=== PATIENT | male | born 1990 | race Caucasian/White ===

== ENCOUNTER 2021-08-11 10:50 | Emergency (ER) | payer MEDICAID ==
--- NOTE | 2021-08-11 11:45 | EDM.PDOC ---
ED HPI GENERAL MEDICAL PROBLEM - General Chief Complaint: Flank Pain Stated Complaint: KIDNEY PAIN Time Seen by Provider: 08/11/21 11:30 Source of Information: Reports: Patient History Limitations: Reports: No Limitations - History of Present Illness INITIAL COMMENTS - FREE TEXT/NARRATIVE: Pt has chronic kidney pain. He has diagnosis of loin pain hematuria syndrome. He has been in to the [place] ER over 70 times in the last year. He has been seen at [facility] for this and has follow up appt in October for that. He was given Percocet for his pain by Edgar So who pt states is his primary. He should have enough pain meds to get through until 08/12 and he took his last one this morning at 3 am. He does have bloody urine. Was given steroids in the ER in [place] 2 days ago. Location: Reports: Abdomen Flank Pain Score (Numeric/FACES): 96 - Related Data Allergies Allergy/AdvReac Type Severity Reaction Status Date / Time amoxicillin [Amoxicillin] Allergy Rash Verified 08/11/21 14:13 bee venom protein (honey bee) Allergy Cannot Verified 08/11/21 14:13 Remember butorphanol [From Stadol] Allergy Hallucinati Verified 08/11/21 14:13 ons haloperidol [From Haldol] Allergy Hallucinati Verified 08/11/21 14:13 ons ketorolac tromethamine Allergy Rash Verified 08/11/21 14:13 [From Toradol] metoclopramide [From Reglan] Allergy Agitation Verified 08/11/21 14:13 promethazine HCl Allergy Hallucinati Verified 08/11/21 14:13 [From Phenergan] ons tramadol HCl [From Ultram] Allergy Rash Verified 08/11/21 14:13 Home Meds: Home Meds Tamsulosin HCl [Flomax] 0.4 mg PO DAILY 05/17/20 [History] Ondansetron [Zofran] 8 mg PO TID PRN 06/08/20 [History] Acetaminophen [Tylenol] 650 mg PO Q4HR PRN 12/15/20 [History] metFORMIN HCl [Metformin ER Gastric] 500 mg PO BID 02/15/21 [History] Losartan Potassium 25 mg PO BEDTIME 08/11/21 [History] oxyCODONE HCl/Acetaminophen [Oxycodone-Acetaminophen 5-325] 1 tab PO Q6H PRN 08/11/21 [History] Past Medical History - Past Health History Medical/Surgical History: Denies Medical/Surgical History HEENT History: Reports: None Cardiovascular History: Reports: High Cholesterol, Hypertension Respiratory History: Reports: None Gastrointestinal History: Reports: Cholelithiasis, Gastritis, GERD Other Gastrointestinal History: gallbladder pain Genitourinary History: Reports: Renal Calculus, Other (See Below) Other Genitourinary History: Vascular kidney disease. Loin pain hematuria syndrome Musculoskeletal History: Reports: None Neurological History: Reports: None Psychiatric History: Reports: Addiction Other Psychiatric History: Drug seeking behavior. 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 Hematologic History: Reports: None Immunologic History: Reports: None Oncologic (Cancer) History: Reports: None Dermatologic History: Reports: None - Infectious Disease History Infectious Disease History: Reports: Chicken Pox, Novel Coronavirus - Past Surgical History Head Surgeries/Procedures: Reports: None HEENT Surgical History: Reports: None Cardiovascular Surgical History: Reports: None GI Surgical History: Reports: Appendectomy, Cholecystectomy Male Surgical History: Reports: Circumcision Other Male Surgeries/Procedures: Has had kidney biopsy Musculoskeletal Surgical History: Reports: Other (See Below) Other Musculoskeletal Surgeries/Procedures:: left arm Social & Family History - Family History Family Medical History: No Pertinent Family History - Tobacco Use Tobacco Use Status *Q: Current Every Day Tobacco User Years of Tobacco use: 15 Packs/Tins Daily: 1 - Caffeine Use Caffeine Use: Reports: Soda Caffeine Use Comment: Occasional - Living Situation & Occupation Living situation: Reports: Single, Alone Occupation: Employed ED ROS GENERAL - Review of Systems Review Of Systems: See Below Constitutional: Denies: Fever, Chills Respiratory: Reports: No Symptoms Cardiovascular: Reports: No Symptoms GI/Abdominal: Reports: Abdominal Pain : Reports: Flank Pain, Hematuria Skin: Reports: No Symptoms ED EXAM, RENAL/ - Physical Exam Exam: See Below Exam Limited By: No Limitations General Appearance: Alert, WD/WN, Moderate Distress Respiratory/Chest: No Respiratory Distress, Lungs Clear, Normal Breath Sounds Cardiovascular: Normal Peripheral Pulses, Regular Rate, Rhythm, No Edema GI/Abdominal: Normal Bowel Sounds, Soft, Tender (throughout all quadrants.) Back Exam: Normal Inspection Extremities: Normal Inspection Neurological: Alert, Oriented Skin Exam: Warm, Dry Course - Vital Signs Last Recorded V/S: Last Vital Signs Temp 96.9 F 08/11/21 10:57 Pulse 72 08/11/21 12:02 Resp 12 08/11/21 12:02 BP 119/85 08/11/21 12:02 Pulse Ox 97 08/11/21 12:02 - Orders/Labs/Meds Labs: Laboratory Tests 08/11/21 08/11/21 08/11/21 Range/Units 11:04 11:19 11:19 WBC 12.8 H (4.0-11.0) 10^3/uL RBC 5.22 (4.50-6.00) x10^6/uL Hgb 15.2 (14.0-18.0) g/dL Hct 45.0 (42.0-52.0) % MCV 86.2 (83.0-97.0) fL MCH 29.1 (27.0-32.0) pg MCHC 33.8 (32.0-36.0) g/dL RDW Coeff of Javon 12.4 (11.0-15.0) % Plt Count 299 (150-400) 10^3/uL Immature Gran % (Auto) 0.2 (0.0-4.9) % Neut % (Auto) 78.2 H (41-71) % Lymph % (Auto) 15.5 L (24-44) % [place] % (Auto) 5.2 (0-10) % Eos % (Auto) 0.5 (0-6) % Baso % (Auto) 0.4 (0-1) % Neut # (Auto) 10.02 H (1.80-8.00) x10^3/uL Lymph # (Auto) 1.99 (0.60-5.00) 10^3/uL [place] # (Auto) 0.67 (0.00-1.50) 10^3/uL Eos # (Auto) 0.06 (0.00-1.50) 10^3/uL Baso # (Auto) 0.05 (0.00-0.50) 10^3/uL Immature Gran # (Auto) 0.03 (0.00-0.49) 10^3/uL C-Reactive Protein 0.5 (0.2-0.8) mg/dL Urine Color Red (YELLOW) Urine Appearance Slightly cloudy (CLEAR) Urine pH 5.5 (4.5-8.0) Ur Specific [place] >= 1.030 H (1.003-1.020) Urine Protein Trace H (NEGATIVE) mg/dL Urine Glucose (UA) Negative (NEGATIVE) mg/dL Urine Ketones Negative (NEGATIVE) mg/dL Urine Occult Blood Large H (NEGATIVE) Urine Nitrite Negative (NEGATIVE) Urine Bilirubin Negative (NEGATIVE) Urine Urobilinogen 0.2 (0.2-1.0) EU/dL Ur Leukocyte Esterase Negative (NEGATIVE) Urine RBC 75-100 H (0-5) /HPF Urine WBC Not seen (0-5) /HPF Meds: Medications Discontinued Medications Generic Name Dose Route Start Last Admin Trade Name Freq PRN Reason Stop Dose Admin Hydromorphone HCl 2 mg 08/11/21 11:37 08/11/21 11:48 Hydromorphone 1 Mg/Ml Syringe IM 08/11/21 11:38 2 mg ONETIME ONE Administration Ondansetron HCl 4 mg 08/11/21 11:36 08/11/21 11:48 Ondansetron 4 Mg/2 Ml Sdv IVPUSH 4 mg Q6H PRN Administration Nausea - Re-Assessments/Exams Free Text/Narrative Re-Assessment/Exam: 08/11/21 1230 Discussed with pt that he has been in the ER over 70 times in the last year in . They state that he has a pain contract with them and he disputes that. He should have enough pain meds from Edgar So to get him thro ugh the 30th and he states that he took the last one early this AM. I told him that I will not do chronic pain meds in the ER that he would have to discuss that with his PCP. Departure - Departure Time of Disposition: 12:54 Disposition: Home, Self-Care 01 Condition: Good Clinical Impression: Loin pain hematuria syndrome - Discharge Information *PRESCRIPTION DRUG MONITORING PROGRAM REVIEWED*: Not Applicable *COPY OF PRESCRIPTION DRUG MONITORING REPORT IN PATIENT FÉLIX: Not Applicable Referrals: PCP,None [Primary Care Provider] - Forms: ED Department Discharge Additional Instructions: push fluids Pain meds will not be prescribed chronically through the ER check with your primary care provider for further pain management. Sepsis Event Note (ED) - Evaluation Sepsis Screening Result: No Definite Risk - Problem List & Annotations (1) Abdominal pain SNOMED Code(s): 93622593 Code(s): R10.9 - UNSPECIFIED ABDOMINAL PAIN Status: Acute Priority: High Qualifiers: Abdominal location: right upper quadrant Qualified Code(s): R10.11 - Right upper quadrant pain (2) Drug-seeking behavior SNOMED Code(s): 427611461 Code(s): Z76.5 - MALINGERER [CONSCIOUS SIMULATION] Status: Acute (3) Gross hematuria SNOMED Code(s): 495155912 Code(s): R31.0 - GROSS HEMATURIA Status: Acute - Problem List Review Problem List Initiated/Reviewed/Updated: Yes
[2021-08-11] MEDS: HYDROmorphone 1 MG/ML Syringe IM ONE (11:48)
[2021-08-11] MEDS: Ondansetron 4 MG/2 ML SDV IVPUSH PRN (11:48)
[2021-08-11 12:04] VITALS: BP 119/85; PULSE 72
== END 2021-08-11 13:00 | disposition home or self-care (01) ==
LOC: CC.ED 10:50
DX: M54.50 Low back pain, unspecified (principal); R31.9 Hematuria, unspecified; E78.00 Pure hypercholesterolemia, unspecified; I10 Essential (primary) hypertension; K21.9 Gastro-esophageal reflux disease without esophagitis; E11.9 Type 2 diabetes mellitus without complications; E66.9 Obesity, unspecified; Z68.41 Body mass index [BMI] 40.0-44.9, adult; Z88.0 Allergy status to penicillin; Z91.030 Bee allergy status; Z88.5 Allergy status to narcotic agent; Z88.8 Allergy status to other drugs, medicaments and biological substances; Z79.899 Other long term (current) drug therapy; Z72.0 Tobacco use
CPT/HCPCS: 36415; 81001; 85025; 86140; 96372; 96374; 99284-25; J1170; J2405

== ENCOUNTER 2021-08-11 14:09 | Observation (INO) | payer MEDICAID ==
[2021-08-11] MEDS ORDERED: Acetaminophen 325 MG Tab PO PRN (14:30)
[2021-08-11] MEDS ORDERED: Docusate Sodium 100 MG Cap PO PRN (14:30)
[2021-08-11] MEDS ORDERED: methylPREDNISolone Sodium Succinate 125 MG/2 ML SDV IVPUSH ONE (15:15)
[2021-08-11] MEDS: Sodium Chloride 0.9% 1,000 ML IV SCH ×2 (15:30→22:24)
[2021-08-11] MEDS: methylPREDNISolone Sodium Succinate 125 MG/2 ML SDV IVPUSH SCH (15:30)
[2021-08-11] MEDS: HYDROmorphone 1 MG/ML Syringe IVPUSH PRN ×2 (15:36→19:57)
[2021-08-11] MEDS: Acetaminophen/oxyCODONE 325-5 MG Tab PO PRN ×2 (18:25→22:35)
[2021-08-11] MEDS: Ondansetron 4 MG Tab.DIS PO PRN (22:36)
[2021-08-12] MEDS: HYDROmorphone 1 MG/ML Syringe IVPUSH PRN ×3 (00:02→08:30)
[2021-08-12] MEDS: methylPREDNISolone Sodium Succinate 125 MG/2 ML SDV IVPUSH SCH (03:58)
[2021-08-12] MEDS: Acetaminophen/oxyCODONE 325-5 MG Tab PO PRN (04:01)
[2021-08-12] MEDS: Sodium Chloride 0.9% 1,000 ML IV SCH (06:15)
[2021-08-12 08:10] LABS: SODIUM,NA 142 mEq/L (136-145)
[2021-08-12 08:19] VITALS: BP 125/61; PULSE 59
[2021-08-12] MEDS: Ondansetron 4 MG Tab.DIS PO PRN (08:31)
--- NOTE | 2021-08-12 09:18 | PCM.DCSUM1 ---
Discharge Summary - Hospital Course Free Text/Narrative:: Ricki is a 31 year old male who was admitted to the hospital with loin pain hematuria syndrome for pain control. Throughout the night, patient had multiple complaints that his pain was not adequately controlled. Was frequently swearing at nursing staff. He was using 5 mg Percocet every 4 hours as well as Dilaudid 1 mg every 4 hours as needed. He reported this did not manage the pain. He reports that in the past he has been having to use 10 mg oxycodone every 6 hours in order to achieve a tolerable level of pain. He continued to have gross hematuria throughout stay. He has apparently had extensive workup with urology in the past to get to this diagnosis of loin pain hematuria syndrome. Has been following with [facility] and is candidate for a renal auto transplant in the future, once he can get weight under 300 lbs. This is all per his report, as we do not yet have his medical records available for review. These have apparently been requested. Long discussion had with patient regarding his numerous ED visits as well as pain medications from multiple providers. Discussed that he needs to follow up with PCP, whom he wishes to be Edgar So, and discuss pain management plan for the future until he is able to get back in with Dr. Marroquin (urologist at [facility]) for his upcoming renal auto transplant. He verbalized that in the past his pain was managed with Percocet 2 tab every 6 hours. He is scheduled to see Dr. Merrill on August 20. Encouraged him to continue with diet and exercise to reach goal weight recommended. Patient did not wish to stay in the hospital, as he reports the Dilaudid is not helping his pain. I will discharge him home with Percocet 1-2 tablets every 6 hours as needed for pain. Does report that in the past he was on amitriptyline as well and that helped his pain as well. Will restart that. Discussed importance of having a primary care provider to manage issues, rather than jumping from provider to provider and going to the ED for his chronic issue. Discussed that he will need to get in pain contract with PCP in future once plan for chronic pain management is established. He discharged home in stable condition. - Discharge Data Discharge Date: 08/12/21 Discharge Disposition: Home, Self-Care 01 Condition: Good - Referral to Home Health Primary Care Physician: Christian So PA-C - Discharge Diagnosis/Problem(s) (1) Loin pain hematuria syndrome SNOMED Code(s): 09191057 ICD Code: M54.5 - LOW BACK PAIN * DO NOT USE *; R31.9 - HEMATURIA, UNSPECIFIED Status: Acute - Patient Instructions Diet: Usual Diet as Tolerated, Weight Loss Diet Activity: As Tolerated Notify Provider of: Fever, Increased Pain, Nausea and/or Vomiting - Discharge Plan *PRESCRIPTION DRUG MONITORING PROGRAM REVIEWED*: Yes *COPY OF PRESCRIPTION DRUG MONITORING REPORT IN PATIENT FÉLIX: Yes Prescriptions/Med Rec: Amitriptyline [Elavil] 25 mg PO BEDTIME #30 tab Tamsulosin HCl [Flomax] 0.4 mg PO DAILY #30 cap oxyCODONE HCl/Acetaminophen [Oxycodone-Acetaminophen 5-325] 2 tab PO Q6H PRN 8 Days #64 PRN Reason: Pain Home Medications: Home Meds Ondansetron [Zofran] 8 mg PO TID PRN 06/08/20 [History] Acetaminophen [Tylenol] 650 mg PO Q4HR PRN 12/15/20 [History] metFORMIN HCl [Metformin ER Gastric] 500 mg PO BID 02/15/21 [History] Losartan Potassium 25 mg PO BEDTIME 08/11/21 [History] Amitriptyline [Elavil] 25 mg PO BEDTIME #30 tab 08/12/21 [Rx] Docusate Sodium [Colace] 100 mg PO BID PRN cap 08/12/21 [Rx] Tamsulosin HCl [Flomax] 0.4 mg PO DAILY #30 cap 08/12/21 [Rx] oxyCODONE HCl/Acetaminophen [Oxycodone-Acetaminophen 5-325] 2 tab PO Q6H PRN 8 Days #64 08/12/21 [Rx] Patient Handouts: Hematuria, Adult Referrals: Christian So PA-C [Primary Care Provider] - - Discharge Summary/Plan Comment DC Time >30 min.: Yes Total # of Minutes for Discharge Time: 60 - General Info Date of Service: 08/12/21 Admission Dx/Problem (Free Text: Loin Pain Hematuria Syndrome Functional Status: Reports: Ambulating, Urinating. Denies: Pain Controlled, Tolerating Diet, New Symptoms - Review of Systems General: Denies: Fever, Weakness, Fatigue, Malaise, Chills Pulmonary: Reports: No Symptoms Cardiovascular: Reports: No Symptoms Gastrointestinal: Reports: Abdominal Pain, Decreased Appetite, Nausea. Denies: Diarrhea, Vomiting Genitourinary: Reports: Pain, Hematuria. Denies: Dysuria Musculoskeletal: Reports: Back Pain Skin: Reports: No Symptoms Neurological: Reports: No Symptoms Psychiatric: Reports: No Symptoms - Patient Data Vitals - Most Recent: Last Vital Signs Temp 96.6 F L 08/12/21 07:57 Pulse 59 L 08/12/21 07:57 Resp 20 08/12/21 07:57 BP 125/61 08/12/21 07:57 Pulse Ox 98 08/12/21 07:57 Weight - Most Recent: 313 lb 11.2 oz I&O - Last 24 hours: Intake & Output 08/11/21 08/12/21 08/12/21 22:59 06:59 14:59 Intake Total 863 981 Balance 863 981 Lab Results - Last 24 hrs: Laboratory Results - last 24 hr 08/12/21 Range/Units 07:49 WBC 15.3 H (4.0-11.0) 10^3/uL RBC 5.20 (4.50-6.00) x10^6/uL Hgb 15.2 (14.0-18.0) g/dL Hct 44.2 (42.0-52.0) % MCV 85.0 (83.0-97.0) fL MCH 29.2 (27.0-32.0) pg MCHC 34.4 (32.0-36.0) g/dL RDW Coeff of Javon 12.0 (11.0-15.0) % Plt Count 322 (150-400) 10^3/uL Add Manual Diff Yes Neutrophils % (Manual) 86 H (35-85) % Band Neutrophils % 2 (0-5) % Lymphocytes % (Manual) 9 L (21-55) % Monocytes % (Manual) 3 (2-12) % Med Orders - Current: Current Medications Acetaminophen (Acetaminophen 325 Mg Tab) 650 mg PO Q4H PRN PRN Reason: Pain (Mild 1-3)/fever Last Admin: 08/11/21 16:38 Dose: 650 mg Documented by: Docusate Sodium (Docusate Sodium 100 Mg Cap) 100 mg PO BID PRN PRN Reason: Constipation Hydromorphone HCl (Hydromorphone 1 Mg/Ml Syringe) 1 mg IVPUSH Q4H PRN PRN Reason: Pain (severe 7-10) Last Admin: 08/12/21 08:30 Dose: 1 mg Documented by: Sodium Chloride (Normal Saline) 1,000 mls @ 125 mls/hr IV ASDIRECTED [facility] Last Admin: 08/12/21 06:15 Dose: 125 mls/hr Documented by: Methylprednisolone Sodium Succinate (Methylprednisolone Sodium Succinate 125 Mg/2 Ml Sdv) 62.5 mg IVPUSH Q12H [facility] Last Admin: 08/12/21 03:58 Dose: 62.5 mg Documented by: Ondansetron HCl (Ondansetron 4 Mg Tab.Dis) 4 mg PO Q6H PRN PRN Reason: Nausea/Vomiting Last Admin: 08/12/21 08:31 Dose: 4 mg Documented by: Oxycodone/Acetaminophen (Acetaminophen/Oxycodone 325-5 Mg Tab) 1 tab PO Q4H PRN PRN Reason: Pain (moderate 4-6) Last Admin: 08/12/21 04:01 Dose: 1 tab Documented by: Discontinued Medications Methylprednisolone Sodium Succinate (Methylprednisolone Sodium Succinate 125 Mg/2 Ml Sdv) 62.5 mg IVPUSH ONETIME ONE Stop: 08/11/21 15:16 - Exam General: Reports: Alert, Oriented, Moderate Distress Neck: Reports: Supple Lungs: Reports: Clear to Auscultation, Normal Respiratory Effort Cardiovascular: Reports: Regular Rate, Regular Rhythm GI/Abdominal Exam: Normal Bowel Sounds, Soft, Tender Back Exam: Reports: Full Range of Motion, CVA Tenderness (L), CVA Tenderness (R) Extremities: Normal Inspection, Normal Range of Motion, Non-Tender, No Pedal Edema, Normal Capillary Refill Skin: Reports: Warm, Dry, Intact Neurological: Reports: No New Focal Deficit Psy/Mental Status: Reports: Other (tearful)
[2021-08-12 09:54] LABS: CHLORIDE,CL 107 mEq/L (98-106)
== END 2021-08-12 10:30 | disposition home or self-care (01) ==
LOC: CC.MS 14:09 → UNDOADMOB 14:09 → CC.MS 14:30 → UNDODISOB 08-12 10:30
PROVIDERS: ADMIT Physician Assistant Medical; ATTEND Family Medicine
DX: R31.9 Hematuria, unspecified (principal); M54.9 Dorsalgia, unspecified; Z88.1 Allergy status to other antibiotic agents; Z88.8 Allergy status to other drugs, medicaments and biological substances; Z88.5 Allergy status to narcotic agent; Z79.899 Other long term (current) drug therapy; Z90.49 Acquired absence of other specified parts of digestive tract; Z98.890 Other specified postprocedural states
CPT/HCPCS: 36415; 80048; 85025; 86140; 96374; 96375; 96376; A9270-GY; G0378; J1170; J2930; J7030

== ENCOUNTER 2021-08-26 09:23 | Emergency (ER) | payer MEDICAID ==
[2021-08-26] MEDS ORDERED: Sodium Chloride 0.9% 10 ML Syringe FLUSH PRN (09:45)
[2021-08-26] MEDS ORDERED: Sodium Chloride 0.9% 1,000 ML IV ONE (09:47)
[2021-08-26] MEDS ORDERED: HYDROmorphone 1 MG/ML Syringe IVPUSH STA (09:47)
[2021-08-26 10:16] LABS: CHLORIDE,CL 106 mEq/L (98-106); SODIUM,NA 141 mEq/L (136-145)
[2021-08-26 10:23] LABS: AMPHETAMINES,URINE NEGATIVE (NEGATIVE); BARBITURATES,URINE NEGATIVE (NEGATIVE); BENZODIAZEPINE,URINE NEGATIVE (NEGATIVE); MDMA (ECSTASY), URINE NEGATIVE (NEGATIVE); METHADONE,URINE NEGATIVE (NEGATIVE); METHAMPHETAMINES,URINE NEGATIVE (NEGATIVE); OPIATES,URINE NEGATIVE (NEGATIVE); OXYCODONE,URINE POSITIVE (NEGATIVE); PHENCYCLIDINE,URINE NEGATIVE (NEGATIVE); TCA,URINE NEGATIVE (NEGATIVE)
[2021-08-26] MEDS ORDERED: HYDROmorphone 1 MG/ML Syringe IVPUSH ONE (10:44)
[2021-08-26 11:53] VITALS: BP 141/69; PULSE 78
== END 2021-08-26 11:53 | disposition home or self-care (01) ==
LOC: CC.ED 09:23
DX: M54.50 Low back pain, unspecified (principal); R31.0 Gross hematuria; E78.00 Pure hypercholesterolemia, unspecified; I10 Essential (primary) hypertension; Z88.0 Allergy status to penicillin; Z91.030 Bee allergy status; Z88.5 Allergy status to narcotic agent; Z88.6 Allergy status to analgesic agent; Z79.84 Long term (current) use of oral hypoglycemic drugs; Z79.899 Other long term (current) drug therapy
CPT/HCPCS: 36415; 80053; 80305; 81001; 85025; 86140; 96374; 96376; 99284; J1170; J7030

== ENCOUNTER 2021-08-30 21:35 | Emergency (ER) | payer MEDICAID ==
[2021-08-30] MEDS ORDERED: Sodium Chloride 0.9% 1,000 ML IV ONE (22:09)
[2021-08-30 22:43] LABS: AMPHETAMINES,URINE NEGATIVE (NEGATIVE); BARBITURATES,URINE NEGATIVE (NEGATIVE); BENZODIAZEPINE,URINE NEGATIVE (NEGATIVE); MDMA (ECSTASY), URINE NEGATIVE (NEGATIVE); METHADONE,URINE NEGATIVE (NEGATIVE); METHAMPHETAMINES,URINE NEGATIVE (NEGATIVE); OPIATES,URINE NEGATIVE (NEGATIVE); OXYCODONE,URINE POSITIVE (NEGATIVE); PHENCYCLIDINE,URINE NEGATIVE (NEGATIVE); TCA,URINE NEGATIVE (NEGATIVE)
[2021-08-30 23:02] VITALS: BP 149/96; PULSE 80
== END 2021-08-30 23:00 | disposition left against medical advice (07) ==
LOC: CC.ED 21:35
DX: G89.4 Chronic pain syndrome (principal); M54.50 Low back pain, unspecified; R31.9 Hematuria, unspecified; I10 Essential (primary) hypertension; E11.9 Type 2 diabetes mellitus without complications; E66.9 Obesity, unspecified; Z68.41 Body mass index [BMI] 40.0-44.9, adult; Z76.5 Malingerer [conscious simulation]; Z72.0 Tobacco use; Z88.0 Allergy status to penicillin; Z91.030 Bee allergy status; Z88.8 Allergy status to other drugs, medicaments and biological substances; Z88.5 Allergy status to narcotic agent; Z79.84 Long term (current) use of oral hypoglycemic drugs; Z79.899 Other long term (current) drug therapy
CPT/HCPCS: 80305-QW; 81001; 99284; J7030

== ENCOUNTER 2021-10-19 10:58 | Emergency (ER) | payer MEDICAID ==
[2021-10-19 11:07] VITALS: BP 145/78; PULSE 68
[2021-10-19 11:27] LABS: AMPHETAMINES,URINE NEGATIVE (NEGATIVE); BARBITURATES,URINE NEGATIVE (NEGATIVE); BENZODIAZEPINE,URINE NEGATIVE (NEGATIVE); MDMA (ECSTASY), URINE NEGATIVE (NEGATIVE); METHADONE,URINE NEGATIVE (NEGATIVE); METHAMPHETAMINES,URINE NEGATIVE (NEGATIVE); OPIATES,URINE NEGATIVE (NEGATIVE); OXYCODONE,URINE POSITIVE (NEGATIVE); PHENCYCLIDINE,URINE NEGATIVE (NEGATIVE); TCA,URINE NEGATIVE (NEGATIVE)
[2021-10-19] MEDS: Sodium Chloride 0.9% 500 ML IV SCH (11:28)
[2021-10-19] MEDS ORDERED: Sodium Chloride 0.9% 500 ML IV SCH (12:00)
== END 2021-10-19 12:01 | disposition left against medical advice (07) ==
LOC: CC.ED 10:58
DX: R10.9 Unspecified abdominal pain (principal); R31.9 Hematuria, unspecified; E78.00 Pure hypercholesterolemia, unspecified; I10 Essential (primary) hypertension; K21.9 Gastro-esophageal reflux disease without esophagitis; E11.9 Type 2 diabetes mellitus without complications; E66.9 Obesity, unspecified; Z68.41 Body mass index [BMI] 40.0-44.9, adult; Z88.0 Allergy status to penicillin; Z91.030 Bee allergy status; Z88.5 Allergy status to narcotic agent; Z88.6 Allergy status to analgesic agent; Z79.84 Long term (current) use of oral hypoglycemic drugs; Z79.899 Other long term (current) drug therapy
CPT/HCPCS: 80305-QW; 81001; 99284; J7040